=== PATIENT | female | born 1940 ===

== ENCOUNTER 2018-01-04 10:43 | Day surgery (SDC) | payer MEDICARE ==
[2018-01-04 11:32] VITALS: BMI 25.7
[2018-01-04 12:05] LABS: HEMOGLOBIN 13.3 g/dL (12.0-16.0); MEAN CELL VOLUME 92.8 fl (81.0-99.0); MEAN CORPUSCULAR HEMOGLOBIN 31.5 pg (27.0-31.0); MEAN CORPUSCULAR HGB CONC 33.9 g/dL (33.0-37.0); RBC 4.23 Mil/uL (3.80-5.20); RED CELL DISTRIBUTION WIDTH 13.1 % (11.5-14.5)
[2018-01-04 12:21] LABS: PARTIAL THROMBOPLASTIN TIME 32.3 Seconds (25.6-37.1); PROTHROMBIN TIME 10.8 Seconds (9.8-13.1)
[2018-01-04] MEDS ORDERED: Lidocaine 1% Inj (20ml) ONE (14:11)
--- NOTE | 2018-01-04 14:37 | CP.SDSHP ---
Same Day Surgery H & P - History Proposed Procedure: US guided FNA of right thyroid nodule Pre-Op Diagnosis: right thyroid nodule - Allergies Allergies: Allergies No Known Allergies Allergy (Verified 01/04/18 11:56) - Physical Exam Vital Signs: Vital Signs 01/04/18 01/04/18 01/04/18 11:45 11:48 14:16 Temperature 97.7 F 97.4 F L Pulse Rate 79 79 67 Respiratory 18 18 Rate Blood Pressure 147/89 151/77 H O2 Sat by Pulse 97 100 Oximetry 01/04/18 14:26 Temperature Pulse Rate 68 Respiratory 18 Rate Blood Pressure 151/70 H O2 Sat by Pulse Oximetry Mental Status: Alert & Oriented x3 - Impression Impression: Pt with a mixed solid and cystic right thyroid nodule. Multiple nodules present. Largest nodule is 3 cm. Plan US guided FNA of right thyroid nodule Pt. Evaluated Today:Candidate for Anesthesia & Procedure: No - Date & Time Date: 01/04/18 Time: 14:00 Short Stay Discharge - Short Stay Discharge Admitting Diagnosis/Reason for Visit: THYROID NODULE Referrals: Antony Young MD [Primary Care Provider] -
--- NOTE | 2018-01-04 14:39 | PCM.SURG1 ---
Surgeon's Initial Post Op Note - Surgeon's Notes Surgeon: Chencho Marvin MD Hand Splitter: NONE Type of Anesthesia: Local Pre-Operative Diagnosis: Right thyroid nodule Operative Findings: Mixed solid and cystic right thyroid 3 cm nodule. Post-Operative Diagnosis: Right thyroid nodule Operation Performed: US guided FNA of right thyroid nodule Specimen/Specimens Removed: 25 g FNA x 4 passes Estimated Blood Loss: EBL {In ML}: 0 Blood Products Given: N/A Drains Used: No Drains Post-Op Condition: Good Date of Surgery/Procedure: 01/04/18 Time of Surgery/Procedure: 14:30
[2018-01-04 14:52] VITALS: BP 148/72; PULSE 60; RESP 20; TEMP 98.1; O2SAT 99
--- NOTE | 2018-01-05 12:19 | US ---
PROCEDURE: Date of Procedure: 01/04/2018 PROCEDURE: 1. Ultrasound guided FNA of right thyroid nodule, CPT 38022 2. Ultrasound guidance for FNA, [id number] Medications: 4 cc1% Lidocaine HISTORY: Enlarged right thyroid nodule. TECHNIQUE: Following informed consent and procedure time-out, a limited ultrasound patient's neck confirmed the presence of multiple right thyroid nodules. Largest thyroid nodule is mixed solid cystic in the mid to lower pole. After the patient's neck was prepped and draped in the usual sterile fashion, the skin was anesthetized with 1% lidocaine. Ultrasound-guided fine needle aspiration was then performed of the dominant right thyroid nodule. A total of 4 passes were made into the nodule with 25 gauge needle under ultrasound guidance. The FNA specimen was sent for routine pathology. Post biopsy ultrasound showed no hematoma. IMPRESSION: Ultrasound-guided FNA of the dominant right thyroid nodule.
== END 2018-01-04 15:05 | disposition home or self-care (01) ==
LOC: H.OPSURG 10:43
PROVIDERS: ATTEND Specialist
DX: E04.1 Nontoxic single thyroid nodule (principal)